=== PATIENT | male | born 1995 | race Caucasian/White ===

== ENCOUNTER 2018-06-06 01:55 | Emergency (ER) | payer OTHER ==
[~2018-06-06] VITALS: Ht 172.7 cm; Wt 127.9 kg
[~2018-06-06 01:55] MED LIST: ALBU0.0939 IH; LORA10TA19 PO
[2018-06-06 02:15] VITALS: BP 138/80
[2018-06-06] MEDS: predniSONE 20 MG TAB PO ONE (03:12)
[2018-06-06] MEDS: IPRATROPIUM 0.02% 0.5 MG/2.5 ML NEBU INH ONE (03:22)
[2018-06-06] MEDS: ALBUTEROL 0.083% 2.5 MG/3 ML NEBU INH ONE (03:23)
[2018-06-06 04:56] VITALS: BP 138/80
== END 2018-06-06 04:56 | disposition home or self-care (01) ==
LOC: MED 01:55
DX: R05 Cough (principal); J45.909 Unspecified asthma, uncomplicated; Z79.899 Other long term (current) drug therapy
CPT/HCPCS: 71045; 94640; 99283; J7512; J7613; J7644; Q0092